=== PATIENT | female | born 1995 | race Two or more races ===

== ENCOUNTER 2023-02-03 16:39 | Outpatient (CLI) | payer OTHER ==
--- NOTE | 2023-02-04 11:19 | Ultrasound Report ---
PROCEDURE: OB Detailed Eval INDICATIONS: SUPERVISION OF OUTSIDE/PRIOR DATING DATA: Last menstrual period (LMP): 09/08/2022. LMP-based estimated date of delivery (MONET): 06/15/2023. First dating scan (date and location): Today's exam. Estimated date of delivery (MONET) from first dating scan: 06/16/2023. The below data below was generated using the ultrasound MONET of 06/18/2023 TECHNIQUE: Real-time scanning was performed of the fetus, with image documentation and biometric measurements. Endovaginal scanning: Not performed COMPARISON: None. FINDINGS: General: A single living intrauterine gestation is present. Presentation: Vertex Placenta: Placental position is anterior, without previa. Amniotic fluid index: 17 cm, within normal limits for gestational age. heart rate: 148 beats per minute. Maternal cervical canal: 4.4 cm long; normal length is 2.5 cm or more. biometrics: Biparietal diameter: 5.1 cm, 21 weeks 3 days Head circumference: 19.2 cm, 21 weeks 3 days Abdominal circumference: 15.7 cm, 20 weeks 6 days Femur length: 4.4 cm, 20 weeks 5 days Estimated gestational age from LMP: 21 weeks 1 day Composite gestational age from present scan: 21 weeks Estimated weight and percentile: 381, 29th percentile Measurement variability in biometric dating: +/- 10 days from 12-20 weeks gestation, +/- 2 weeks from 20-30 weeks gestation, +/- 3 weeks at 30 weeks gestation or later. Anatomic survey: Neuro: Ventricles are normal at less than 10 mm. Cisterna magna is normal at 3-11 mm. Cerebellum i s normal in size and morphology. Nuchal skin fold: Normal at less than 6 mm between 14 and 20 weeks gestational age. Face: Nose and lips, facial profile are normal. Spine: No evidence for spina bifida. Heart: 4-chambered heart is present, with normal ventricular outflow tracts. Left ventricular echoge dedrick focus. Diaphragm: Diaphragm is intact. Stomach: Left-sided stomach is present. Kidneys: No hydronephrosis. Normal is less than 5 mm in 2nd trimester, less than 7 mm in 3rd trimester. Cord: 3 vessel cord has orthotopic insertion. Bladder: Normal in size. Extremities: All 4 extremities are visualized. IMPRESSION: Single living intrauterine at 21 weeks 0 days, MONET of 06/16/2023 based on this exam. Estimated weight of 381 g, 29th percentile. Left ventricular echogenic focus, which does have association with trisomies (low in isolation). Cons ider genetic testing. Otherwise, normal anatomy survey. Reviewed by: Rayray Reyes on 02/04/2023 11:18 AM PDT Approved by: Rayray Reyes on 02/04/2023 11:18 AM PDT Station ID: [id number]
== END 2023-02-03 16:40 | disposition home or self-care (01) ==
LOC: DI 16:39
PROVIDERS: ATTEND Midwife
DX: Z34.02 Encounter for supervision of normal first pregnancy, second trimester (principal); Z36.3 Encounter for antenatal screening for malformations